=== PATIENT | female | born 1955 | race Caucasian/White ===

== ENCOUNTER 2019-04-15 17:24 | Emergency (ER) | payer OTHER ==
--- NOTE | 2019-04-15 17:34 | PDOC ---
Rapid Medical Evaluation Chief Complaint: Blood Sugar Problem Time Seen by Provider: 04/15/19 17:31 Medical Evaluation: Allergies Allergy/AdvReac Type Severity Reaction Status Date / Time No Known Allergies Allergy Unverified 02/17/14 13:54 04/15/19 17:31 I have performed a brief in-person evaluation of this patient. The patient presents with a chief complaint of: sent from PMD from [facility] 526 today , + urine infection Pertinent physical exam findings: pale,, thirsty, feels tired I have ordered the following: labs/ UA The patient will proceed to the ED for further evaluation. 04/15/19 17:35 Discharge Disposition - Diagnosis Hyperglycemia - Referrals - Patient Instructions - Post Discharge Activity
[2019-04-15 17:35] VITALS: BP 99/58; PULSE 91; TEMP 97.7; BMI 31.5
--- NOTE | 2019-04-15 19:07 | PDOC ---
History of Present Illness - General Chief Complaint: Blood Sugar Problem Stated Complaint: BLOOD SUGAR PROBLEM/SENT BY PCP Time Seen by Provider: 04/15/19 17:31 History Source: Patient Exam Limitations: No Limitations - History of Present Illness Initial Comments: Pt is a 63 yo F, with PMH of NIDDM and HTN, who is presenting via EMS from her PCP for BGM of 526 in the office today. Pt had presented for concern of fatigue , polydipsia, dysuria, urgency, and burning sensation during urination x2 weeks. Pt states she is supposed to take an oral medication for DM, but does not know the dosage and has not been taking her BG measurement at home. Pt states her last A1C in the office 6 months ago was 9.7. Pt denies any fevers/ chills, headache, vision changes, syncope, chest pain, palpitations, SOB, nausea /vomiting, abdominal pain, diarrhea/constipation, or leg swelling. Allergies: NKDA PCP: Dr. Cao Social: Pt smokes 1/2 ppd. Pt denies any alcohol or drug use. Pt denies any recent travel or sick contacts. Pt travels to [place] every 6 months. Surgical: no relevant history. Family: CVA/DM in mother - age 60s. 04/15/19 21:01 Past History - Travel Traveled outside of the country in the last 30 days: No Close contact w/someone who was outside of country & ill: No - Past Medical History Allergies/Adverse Reactions: Allergies Allergy/AdvReac Type Severity Reaction Status Date / Time No Known Allergies Allergy Verified 04/15/19 17:35 Home Medications: Ambulatory Orders Lisinopril 10 mg PO DAILY #30 tablet 02/17/14 Mometasone Furoate [Nasonex] 2 spray NS DAILY #1 02/17/14 Cephalexin Monohydrate [Keflex -] 500 mg PO BID #14 capsule 04/15/19 Sitagliptin Phos/Metformin HCl [Janumet 50-1,000 mg Tablet] 1 each PO BID #30 tablet 04/15/19 COPD: No Diabetes: Yes HTN: Yes Hypercholesterolemia: Yes - Surgical History Abdominal Surgery: (FIBROIDS REMOVED, HEMMORRHOIDS) - Suicide/Smoking/Psychosocial Hx Smoking History: Current every day smoker Number of Cigarettes Smoked Daily: 10 Information on smoking cessation initiated: No Hx Alcohol Use: No Drug/Substance Use Hx: No Review of Systems - Review of Systems Able to Perform ROS?: Yes Is the patient limited Nepali proficient: No Constitutional: Yes: Malaise, Weight Stable. No: Chills, Diaphoresis, Fever, Loss of Appetite, Weakness HEENTM: No: Blurred Vision, Double Vision, Throat Pain, Throat Swelling, Difficulty Swallowing Respiratory: No: Cough, Orthopnea, Shortness of Breath Cardiac (ROS): No: Chest Pain, Edema, Irregular Heart Rate, Lightheadedness, Palpitations, Syncope, Chest Tightness ABD/GI: No: Constipated, Diarrhea, Nausea, Poor Appetite, Poor Fluid Intake, Vomiting, Abdominal cramping : Yes: Dysuria, Frequency, Pain, Urgency. No: Discharge, Flank Pain, Hematuria, Incontinence Musculoskeletal: No: Back Pain, Joint Pain Integumentary: No: Dryness, Erythema, Rash Neurological: No: Headache, Numbness, Tingling, Tremors, Weakness, Unsteady Gait , Ataxia, Dizziness Psychiatric: No: Sleep Pattern Change, Change in Appetite Endocrine: No: Change in Weight Hematologic/Lymphatic: No: Anemia, Blood Clots, Easy Bleeding, Easy Bruising All Other Systems: Reviewed and Negative *Physical Exam - Vital Signs Last Vital Signs Temp Pulse Resp BP Pulse Ox 97.7 F 91 H 16 99/58 L 96 04/15/19 17:32 04/15/19 17:32 04/15/19 17:32 04/15/19 17:32 04/15/19 17:32 - Physical Exam Comments: BP 99/58, HR 91, pt afebrile. Pt in NAD, ambulatory in ED, with obese body habitus. Pt alert and oriented x3. 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 No midline spinal tenderness, step-offs, or crepitus. Head normocephalic, atraumatic. Eyes PERRLA, EOMI. Oropharynx without erythema or exudates, no LAD b/l. No nasal congestion, hearing intact. Clear heart sounds, S1/S2, no JVD, b/l pedal edema, or heart murmur. Clear lung sounds, no respiratory distress, wheezes, crackles, or accessory muscle use. No abdominal or CVA tenderness to palpation, no rebound, no guarding. Abdomen soft, non-distended, and with normoactive bowel sounds. Skin without jaundice or rash. 04/15/19 20:44 ED Treatment Course - LABORATORY CBC & Chemistry Diagram: 04/15/19 19:40 04/15/19 19:40 Medical Decision Making - Medical Decision Making Pt was seen at bedside, also will be seen by attending Dr. Queen. Pt presenting via EMS from her PCP for BGM of 526 in the office today. Pt had presented for concern of fatigue, polydipsia, dysuria, urgency, and burning sensation during urination x2 weeks. Pt states she is supposed to take an oral medication for DM, but does not know the dosage and has not been taking her BG measurement at home. Pt states her last A1C in the office 6 months ago was 9.7. Pt denies any fevers/chills, headache, vision changes, syncope, chest pain, palpitations, SOB, nausea/vomiting, abdominal pain, diarrhea/constipation, or leg swelling. Considering hyperglycemia vs DKA vs 2/2 infection (UTI) vs metabolic/ electrolyte abnormalities. Ordered work-up including CBC, CMP, acetone, EKG, UA, urine culture. Provided 2 L IV NS for improvement of dehydration, hyperglycemia. Will continue to reassess pt and monitor for symptomatic improvement. 04/15/19 20:58 ECG: NSR, intervals WNL (HR 68, CT 150, QRS 74, QTc 465). No TWIs or significant ST segment changes. No significant changes from prior ECG. Repeat BGM after 2 L IV NS: 363 BP improved, pt no longer tachycardic after IVF. Acetone negative, no AG -- not DKA Treating UTI with Keflex Sent Janumet (home dose) and Keflex to pt pharmacy. Cr slightly elevated at 1.6, provided pt 2L IV NS, likely 2/2 to dehydration and long-standing DM. No prior for comparison. Pt can be discharged to home with follow-up. Pt advised to follow-up with PCP in 1-2 days and has been referred to endocrine (Dr. Feng). Strict return precautions provided with pt understanding. 04/15/19 22:14 04/16/19 00:05 *DC/Admit/Observation/Transfer Diagnosis at time of Disposition: Hyperglycemia - Discharge Dispostion Disposition: HOME Condition at time of disposition: Improved Decision to Admit order: No - Prescriptions Prescriptions: Cephalexin Monohydrate [Keflex -] 500 mg PO BID #14 capsule Sitagliptin Phos/Metformin HCl [Janumet 50-1,000 mg Tablet] 1 each PO BID #30 tablet - Referrals Referrals: Phillip Cao MD [Primary Care Provider] - Giacomo Feng MD [Staff Physician] - - Patient Instructions Additional Instructions: You were seen in the ER today for high blood sugar. The results of your labs and imaging today showed high blood sugar and a urinary tract infection. Please follow-up with your primary care doctor and Dr. Feng within 1-2 days to discuss your visit and make sure your symptoms have improved. Please return to the ER if you have any worsening pain, confusion, development of fevers or chills, loss of consciousness, inability to tolerate food or fluids, or any other concerns. We have sent antibiotics and your blood sugar medication to your pharmacy. Please take this as prescribed. - Post Discharge Activity
[2019-04-15] MEDS ORDERED: SODIUM CHLORIDE 1,000 ML IV STA ×2 (19:10→20:39)
[2019-04-15 20:32] LABS: BASO % 0.6 % (0-2.0); EOS % 0.4 % (0-4.5); HEMATOCRIT 42.1 % (32.4-45.2); HEMOGLOBIN 14.2 GM/dL (10.7-15.3); LYMPH % 23.7 % (8-40); MCH 31.4 pg (25.7-33.7); MCHC 33.8 g/dl (32.0-36.0); MEAN CELL VOLUME 93.1 fl (80-96); MEAN PLT VOLUME 9.8 fl (7.5-11.1); MONO % 8.9 % (3.8-10.2); NEUT % 66.4 % (42.8-82.8); PLATELET COUNT 337 K/MM3 (134-434); RBC 4.53 M/mm3 (3.60-5.2); RDW 13.9 % (11.6-15.6); WHITE BLOOD COUNT 16.1 K/mm3 (4.0-10.0)
[2019-04-15 21:00] LABS: ALBUMIN 3.3 g/dl (3.4-5.0); BILIRUBIN,TOTAL 0.2 mg/dL (0.2-1); BLOOD UREA NITROGEN 27.1 mg/dL (7-18); CALCIUM 9.3 mg/dL (8.5-10.1); CREATININE 1.6 mg/dL (0.55-1.3); POTASSIUM 4.2 mmol/L (3.5-5.1); TOT PROT 7.2 g/dl (6.4-8.2)
[2019-04-15 21:17] LABS: INR 0.96 (0.83-1.09); PROTHROMBIN TIME (PATIENT) 11.3 SEC (9.7-13.0)
[2019-04-15 21:36] LABS: EPI CELLS 5.6 /HPF (0-5/HPF); HYALINE CASTS 11 /lpf (0-8); URINE APPEARANCE TURBID; URINE BACTERIA 46.9 /hpf (NEGATIVE); URINE BILIRUBIN NEGATIVE (NEGATIVE); URINE COLOR DK YELLOW; URINE GLUCOSE (UA) 3+ (NEGATIVE); URINE KETONE 1+ (NEGATIVE); URINE LEUK ESTERASE 2+ (NEGATIVE); URINE NITRITE NEGATIVE (NEGATIVE); URINE PROTEIN 4+ (NEGATIVE); URINE RBC 22 /hpf (0-4); URINE WBC 391 /hpf (0-5)
--- NOTE | 2019-04-15 21:57 | PDOC ---
Documentation entered by Wili Felton SCRIBE, acting as scribe for Irma Queen MD. Irma Queen MD: This documentation has been prepared by the Jose Francisco gibbs Daniel, SCRIBE, under my direction and personally reviewed by me in its entirety. I confirm that the documentation accurately reflects all work, treatment, procedures, and medical decision making performed by me. Attending Attestation - Resident Resident Name: Mamta Fragoso - ED Attending Attestation I have performed the following: I have examined & evaluated the patient, The case was reviewed & discussed with the resident, I agree w/resident's findings & plan, Exceptions are as noted - HPI HPI: 04/15/19 20:40 The patient is a 63 year old female with a past medical history of diabetes ( states she is compliant with her meds) and HTN here today for evaluation of elevated blood sugar. The patient reports that she saw her PCP today and had a finger stick which showed her sugar in the 500s. She also notes polyuria, increased fluid intake, and states that she has a UTI. Patient denies headache, lightheadedness. Denies fever, chills. Denies chest pain, shortness of breath. Denies nausea, vomiting, diarrhea, abdominal pain. Allergies: NKA Social history: Patient confirms tobacco use (half a pack a day since 13). Patient is retired and live in [place] but comes up to [place] 3-4 times a year. PCP: Phillip Cao - Physicial Exam PE: 04/15/19 20:40 GENERAL: Well-appearing, well-nourished. No apparent distress. HEENT: Normocephalic, atraumatic. PERRL, EOM intact. CARDIOVASCULAR: Normal S1, S2. Regular rate and rhythm. PULMONARY: Clear to auscultation bilaterally. ABDOMEN: Soft, protuberant, non-tender. EXTREMITIES: Normal ROM in all four extremities. No gross deformities. SKIN: Warm, dry. No rash NEUROLOGICAL: No focal neurological deficits. - Medical Decision Making 04/15/19 21:55 patient had complaint of dysuria and was found to have urinary tract infection. She has no fever, she is not in DKA as her acetone is negative. She is not acidotic. patient states she does take JANUMET 50 milligrams/thousand milligrams twice a day impression poorly controlled type 2 diabetes, urinary tract infection. Plan patient will be started on antibiotics and is encouraged to take her Janumet twice daily 04/15/19 21:57
[2019-04-15] MEDS ORDERED: CEPHALEXIN MONOHYDRATE 500 MG CAPSULE (UD) PO ONE (22:03)
[2019-04-15] MEDS ORDERED: CEPHALEXIN MONOHYDRATE 500 MG CAPSULE (UD) ONE (22:24)
--- NOTE | 2019-04-16 14:45 | EKG ---
Test Reason : Blood Pressure : / mmHG Vent. Rate : 068 BPM Atrial Rate : 068 BPM P-R Int : 150 ms QRS Dur : 074 ms QT Int : 438 ms P-R-T Axes : 055 018 043 degrees QTc Int : 465 ms NORMAL SINUS RHYTHM NORMAL ECG NO PREVIOUS ECGS AVAILABLE Confirmed by MD GABY, SERGEY ([id number]) on 04/16/2019 2:44:45 PM Referred By: Confirmed By:SERGEY GRIFFIN MD
== END 2019-04-15 22:40 | disposition home or self-care (01) ==
LOC: JER 17:24
PROC: 3E0337Z Introduction of Electrolytic and Water Balance Substance into Peripheral Vein, Percutaneous Approach (ICD-10-PCS; principal; 2019-04-15)
DX: E11.65 Type 2 diabetes mellitus with hyperglycemia (principal); Z79.84 Long term (current) use of oral hypoglycemic drugs; I10 Essential (primary) hypertension; E78.00 Pure hypercholesterolemia, unspecified; N39.0 Urinary tract infection, site not specified; R30.0 Dysuria
CPT/HCPCS: 36415; 71046-TC-FY; 80053; 81003; 82009; 82962; 85025; 85610; 87086; 93005; 93010; 96360; 96361; 99282-25; J7030

== ENCOUNTER 2021-05-16 12:45 | Inpatient (IN) | payer OTHER ==
[2021-05-16 13:58] LABS: BASO % 1.3 % (0-2.0); EOS % 0.2 % (0-4.5); HEMOGLOBIN 9.3 GM/dL (10.7-15.3); LYMPH % 17.8 % (8-40); MCH 32.8 pg (25.7-33.7); MCHC 34.6 g/dl (32.0-36.0); MEAN CELL VOLUME 94.9 fl (80-96); MEAN PLT VOLUME 8.6 fl (7.5-11.1); MONO % 17.1 % (3.8-10.2); NEUT % 63.6 % (42.8-82.8); PLATELET COUNT 271 10^3/uL (134-434); RBC 2.84 M/mm3 (3.60-5.2); RDW 17.4 % (11.6-15.6); WHITE BLOOD COUNT 9.4 K/mm3 (4.0-10.0)
[2021-05-16 14:05] LABS: INR 1.01 (0.83-1.09); PROTHROMBIN TIME (PATIENT) 12.4 SEC (9.7-13.0)
[2021-05-16 14:07] LABS: ACTIVATED PTT 24.7 SECONDS (25.2-36.5); CHLORIDE 111 mmol/L (98-107); SODIUM 143 mmol/L (136-145)
[2021-05-16 14:09] LABS: CALCIUM 8.4 mg/dL (8.5-10.1)
[2021-05-16 14:10] LABS: ALBUMIN 2.7 g/dl (3.4-5.0); ANION GAP 6 MMOL/L (8-16); CO2 25 mmol/L (21-32); GLUCOSE,RANDOM 222 mg/dL (74-106); MAGNESIUM 1.8 mg/dL (1.8-2.4)
[2021-05-16 14:13] LABS: CREATININE 0.7 mg/dL (0.55-1.3); SGOT/AST 13 U/L (15-37); SGPT/ALT 14 U/L (13-61)
[2021-05-16 14:14] LABS: BILIRUBIN,TOTAL 0.2 mg/dL (0.2-1)
[2021-05-16 14:15] LABS: TOT PROT 6.1 g/dl (6.4-8.2)
[2021-05-16 14:16] LABS: ALK PHOS 160 U/L (45-117)
[2021-05-16] MEDS ORDERED: ASPIRIN 81 MG CHEWABLE TABLETS PO ONE (14:34)
[2021-05-16] MEDS ORDERED: ASPIRIN 81 MG CHEWABLE TABLETS ONE ×2 (14:35→14:38)
[2021-05-16 14:40] LABS: ANISOCYTOSIS 1+; MACROCYTOSIS 0; PLATELET ESTIMATE NORMAL
[2021-05-16 14:50] LABS: N-TERMINAL BNP 10274.6 pg/ml (5-125)
[2021-05-16] MEDS ORDERED: HEPARIN NA (PORCINE) 5,000 UNITS/ML 1ML VIAL IVPUSH PRN ×3 (16:04→19:42)
[2021-05-16] MEDS ORDERED: HEPARIN NA (PORCINE) 5,000 UNITS/ML 1ML VIAL IVPUSH ONE (16:04)
[2021-05-16] MEDS ORDERED: CLOPIDOGREL BISULFATE 300 MG TABLET PO ONE (16:07)
[2021-05-16] MEDS ORDERED: metoPROLOL SUCCINATE 25 MG TAB.SR.24H (FP) PO ONE (16:08)
[2021-05-16] MEDS ORDERED: HEPARIN NA (PORCINE) 5,000 UNITS/ML 1ML VIAL ONE (16:15)
[2021-05-16] MEDS ORDERED: HEPARIN INFUSION - 25,000 UNITS/500 ML INFUS.BAG IVPB ONE (16:16)
[2021-05-16] MEDS ORDERED: CLOPIDOGREL BISULFATE 300 MG TABLET ONE (16:28)
[2021-05-16] MEDS ORDERED: metoPROLOL SUCCINATE 25 MG TAB.SR.24H (FP) ONE (16:28)
[2021-05-16] MEDS: HEPARIN - 25,000 UNIT in SODIUM CHLORIDE 495 ML IV SCH (17:21)
[2021-05-16 23:03] LABS: ARTERIAL BLD GAS O2 SATURATION 99.5 % (95-98); ARTERIAL BLOOD GAS BASE EXCESS -2.2 mmol/L (-2-2); ARTERIAL BLOOD GAS PO2 215.2 mmHg (80-100); ARTERIAL BLOOD GAS pH 7.417 (7.350-7.450)
[2021-05-16 23:05] LABS: ALLENS TEST POSITIVE
[2021-05-16 23:16] VITALS: BMI 28.0
[2021-05-16] MEDS: ATORVASTATIN CA 80 MG TABLET (FP) PO SCH (23:40)
[2021-05-16] MEDS: ZOLPIDEM TARTRATE 5 MG TABLET PO PRN (23:40)
[2021-05-17 00:19] LABS: INR 1.04 (0.83-1.09); PROTHROMBIN TIME (PATIENT) 12.8 SEC (9.7-13.0)
[2021-05-17 00:21] LABS: ACTIVATED PTT 26.9 SECONDS (25.2-36.5)
[2021-05-17] MEDS: HEPARIN NA (PORCINE) 5,000 UNITS/ML 1ML VIAL IVPUSH PRN ×2 (01:04→17:25)
[2021-05-17 04:51] LABS: BASO % 0.7 % (0-2.0); HEMATOCRIT 27.7 % (32.4-45.2); HEMOGLOBIN 9.3 GM/dL (10.7-15.3); LYMPH % 8.8 % (8-40); MCHC 33.6 g/dl (32.0-36.0); MEAN CELL VOLUME 95.2 fl (80-96); NEUT % 75.5 % (42.8-82.8); PLATELET COUNT 253 10^3/uL (134-434); RBC 2.91 M/mm3 (3.60-5.2); RDW 17.2 % (11.6-15.6); WHITE BLOOD COUNT 13.5 K/mm3 (4.0-10.0)
[2021-05-17 06:21] LABS: ALBUMIN 2.6 g/dl (3.4-5.0); ALK PHOS 176 U/L (45-117); ANION GAP 9 MMOL/L (8-16); BILIRUBIN,TOTAL 0.2 mg/dL (0.2-1); BLOOD UREA NITROGEN 19.3 mg/dL (7-18); CHLORIDE 111 mmol/L (98-107); CHOLESTEROL 238 mg/dL (50-200); CO2 22 mmol/L (21-32); GLUCOSE,RANDOM 396 mg/dL (74-106); HDL CHOLESTEROL 43 mg/dL (40-60); LDL CHOLESTEROL (ONLY SJRH) 156 mg/dL (5-100); SGOT/AST 12 U/L (15-37); SGPT/ALT 16 U/L (13-61); SODIUM 142 mmol/L (136-145); TRIGLYCERIDES 191 mg/dL (0-150)
[2021-05-17] MEDS: INSULIN SLIDING SCALE (NOVOLOG) 1 VIAL SQ SCH ×3 (07:50→17:31)
[2021-05-17] MEDS: LISINOPRIL 20 MG TABLET PO SCH (09:48)
[2021-05-17] MEDS: ASPIRIN COATED 81 MG TABLET.EC PO SCH (09:48)
[2021-05-17] MEDS: metoPROLOL SUCCINATE 25 MG TAB.SR.24H (FP) PO SCH (09:49)
[2021-05-17 10:07] LABS: ANISOCYTOSIS 1+; MACROCYTOSIS 0; PLATELET ESTIMATE NORMAL
[2021-05-17] MEDS: HEPARIN - 25,000 UNIT in SODIUM CHLORIDE 495 ML IV SCH (15:15)
[2021-05-17] MEDS: FUROSEMIDE 40 MG/4 ML INJECTABLE VIAL IVPUSH SCH (15:20)
[2021-05-17] MEDS: ATORVASTATIN CA 80 MG TABLET (FP) PO SCH (21:33)
[2021-05-17] MEDS: ZOLPIDEM TARTRATE 5 MG TABLET PO PRN (21:51)
[2021-05-17] MEDS ORDERED: INSULIN (LEVEMIR) 100 UNITS/ML UNITS SQ SCH (22:00)
[2021-05-18] MEDS: HEPARIN NA (PORCINE) 5,000 UNITS/ML 1ML VIAL IVPUSH PRN (00:35)
[2021-05-18] MEDS: FUROSEMIDE 40 MG/4 ML INJECTABLE VIAL IVPUSH SCH ×2 (06:39→14:40)
[2021-05-18] MEDS: INSULIN SLIDING SCALE (NOVOLOG) 1 VIAL SQ SCH ×3 (06:40→17:15)
[2021-05-18 07:12] LABS: BASO % 0.9 % (0-2.0); EOS % 0.1 % (0-4.5); HEMATOCRIT 25.2 % (32.4-45.2); HEMOGLOBIN 8.7 GM/dL (10.7-15.3); LYMPH % 20.4 % (8-40); MCH 32.9 pg (25.7-33.7); MCHC 34.4 g/dl (32.0-36.0); MEAN CELL VOLUME 95.5 fl (80-96); MEAN PLT VOLUME 9.3 fl (7.5-11.1); MONO % 13.2 % (3.8-10.2); NEUT % 65.4 % (42.8-82.8); PLATELET COUNT 221 10^3/uL (134-434); RBC 2.64 M/mm3 (3.60-5.2); RDW 18.5 % (11.6-15.6); WHITE BLOOD COUNT 11.9 K/mm3 (4.0-10.0)
[2021-05-18 09:43] LABS: ANISOCYTOSIS 1+; MACROCYTOSIS 0; PLATELET ESTIMATE NORMAL
[2021-05-18] MEDS: metoPROLOL SUCCINATE 25 MG TAB.SR.24H (FP) PO SCH (09:51)
[2021-05-18] MEDS: ASPIRIN COATED 81 MG TABLET.EC PO SCH (09:51)
[2021-05-18] MEDS: LISINOPRIL 20 MG TABLET PO SCH (09:51)
[2021-05-18] MEDS ORDERED: INSULIN (LEVEMIR) 100 UNITS/ML UNITS SQ SCH (10:15)
[2021-05-18] MEDS ORDERED: PT OWN MED DRAWER 7, Y5N ONE (11:12)
[2021-05-18 12:26] LABS: CALCIUM 7.8 mg/dL (8.5-10.1)
[2021-05-18 12:33] LABS: ALBUMIN 2.3 g/dl (3.4-5.0); BILIRUBIN,TOTAL 0.3 mg/dL (0.2-1); BLOOD UREA NITROGEN 19.4 mg/dL (7-18); CREATININE 0.8 mg/dL (0.55-1.3); TOT PROT 5.3 g/dl (6.4-8.2)
[2021-05-18] MEDS: HEPARIN - 25,000 UNIT in SODIUM CHLORIDE 495 ML IV SCH (16:38)
[2021-05-18] MEDS: ATORVASTATIN CA 80 MG TABLET (FP) PO SCH (22:00)
[2021-05-18] MEDS ORDERED: ZOLPIDEM TARTRATE 5 MG TABLET PO ONE ×2 (22:31→23:00)
[2021-05-19] MEDS: FUROSEMIDE 40 MG/4 ML INJECTABLE VIAL IVPUSH SCH ×2 (05:25→13:32)
[2021-05-19] MEDS: INSULIN SLIDING SCALE (NOVOLOG) 1 VIAL SQ SCH ×3 (07:06→17:15)
[2021-05-19 07:28] LABS: HEMATOCRIT 23.3 % (32.4-45.2); HEMOGLOBIN 7.9 GM/dL (10.7-15.3); MCH 32.1 pg (25.7-33.7); MCHC 33.8 g/dl (32.0-36.0); MEAN CELL VOLUME 94.8 fl (80-96); PLATELET COUNT 226 10^3/uL (134-434); RBC 2.46 M/mm3 (3.60-5.2); RDW 18.8 % (11.6-15.6)
[2021-05-19 07:54] LABS: ALBUMIN 2.4 g/dl (3.4-5.0)
[2021-05-19 07:57] LABS: CREATININE 0.8 mg/dL (0.55-1.3)
[2021-05-19 07:58] LABS: BILIRUBIN,TOTAL 0.3 mg/dL (0.2-1)
[2021-05-19 07:59] LABS: TOT PROT 5.3 g/dl (6.4-8.2)
[2021-05-19] MEDS: ASPIRIN COATED 81 MG TABLET.EC PO SCH (09:06)
[2021-05-19] MEDS: metoPROLOL SUCCINATE 25 MG TAB.SR.24H (FP) PO SCH (09:07)
[2021-05-19] MEDS: LISINOPRIL 20 MG TABLET PO SCH (09:07)
[2021-05-19] MEDS ORDERED: ZOLPIDEM TARTRATE 5 MG TABLET PO PRN (10:01)
[2021-05-19] MEDS: POTASSIUM CHLORIDE TABS 20 MEQ TABLET.ER (FP) PO SCH (13:32)
[2021-05-19] MEDS: ZOLPIDEM TARTRATE 5 MG TABLET PO PRN ×2 (21:32→23:13)
[2021-05-19] MEDS: guaiFENesin 600 MG TABLET.ER (FP) PO SCH (21:32)
[2021-05-19] MEDS: ATORVASTATIN CA 80 MG TABLET (FP) PO SCH (21:32)
[2021-05-19] MEDS ORDERED: INSULIN (LEVEMIR) 100 UNITS/ML UNITS SQ SCH (22:00)
[2021-05-19] MEDS ORDERED: LOPERAMIDE HCL 2 MG CAPSULE PO ONE (22:31)
[2021-05-19] MEDS ORDERED: MELATONIN 5 MG TABLETS PO ONE (22:54)
[2021-05-20] MEDS ORDERED: FUROSEMIDE 40 MG/4 ML INJECTABLE VIAL IVPUSH SCH (06:00)
[2021-05-20] MEDS: INSULIN SLIDING SCALE (NOVOLOG) 1 VIAL SQ SCH ×3 (06:52→16:32)
[2021-05-20] MEDS ORDERED: INSULIN (NOVOLOG) ASPART 100 UNITS/ML 10ML VIAL ONE ×3 (06:56→16:27)
[2021-05-20] MEDS: POTASSIUM CHLORIDE TABS 20 MEQ TABLET.ER (FP) PO SCH (09:16)
[2021-05-20] MEDS: ASPIRIN COATED 81 MG TABLET.EC PO SCH (09:16)
[2021-05-20] MEDS: guaiFENesin 600 MG TABLET.ER (FP) PO SCH ×2 (09:16→21:23)
[2021-05-20] MEDS: LISINOPRIL 20 MG TABLET PO SCH (09:17)
[2021-05-20] MEDS: metoPROLOL SUCCINATE 25 MG TAB.SR.24H (FP) PO SCH (09:17)
[2021-05-20] MEDS ORDERED: PIPERACILLIN/TAZOBACTAM 4.5 GM VIAL IVPB ONE ×2 (10:06→17:37)
[2021-05-20] MEDS ORDERED: DEXTROSE 5%-WATER 100 ML IVPB ONE (10:06)
[2021-05-20] MEDS: PIPERACILLIN/TAZOB 4.5 GM 4.5 GM in DEXTROSE 5%-WATER 100 ML IVPB SCH ×3 (10:14→19:05)
[2021-05-20] MEDS: FUROSEMIDE 40 MG TABLET (FP) PO SCH (13:47)
[2021-05-20] MEDS ORDERED: PIPERACILLIN/TAZOBACTAM 3.375 GM VIAL IVPB ONE (18:18)
[2021-05-20] MEDS: PIPERACILLIN/TAZOB 3.375 GM 3.375 GM in DEXTROSE 5%-WATER - 50 ML IVPB SCH (18:19)
[2021-05-20] MEDS: ATORVASTATIN CA 80 MG TABLET (FP) PO SCH (21:24)
[2021-05-20] MEDS: INSULIN (LEVEMIR) 100 UNITS/ML UNITS SQ SCH (21:24)
[2021-05-20] MEDS: ZOLPIDEM TARTRATE 5 MG TABLET PO PRN (21:24)
[2021-05-21] MEDS ORDERED: PIPERACILLIN/TAZOBACTAM 3.375 GM VIAL IVPB ONE ×3 (01:06→17:35)
[2021-05-21] MEDS ORDERED: DEXTROSE 5%-WATER - 50 ML IVPB ONE ×3 (01:06→17:35)
[2021-05-21] MEDS: PIPERACILLIN/TAZOB 3.375 GM 3.375 GM in DEXTROSE 5%-WATER - 50 ML IVPB SCH ×3 (01:38→17:47)
[2021-05-21] MEDS: FUROSEMIDE 40 MG TABLET (FP) PO SCH ×2 (06:19→13:55)
[2021-05-21] MEDS: INSULIN SLIDING SCALE (NOVOLOG) 1 VIAL SQ SCH ×3 (06:22→17:46)
[2021-05-21] MEDS ORDERED: REGADENOSON 0.4 MG/5 ML PRE-FILLED SYRINGE IVPUSH ONE ×2 (09:45→10:12)
[2021-05-21] MEDS: ASPIRIN COATED 81 MG TABLET.EC PO SCH (12:36)
[2021-05-21] MEDS: LISINOPRIL 20 MG TABLET PO SCH (12:36)
[2021-05-21] MEDS: metoPROLOL SUCCINATE 25 MG TAB.SR.24H (FP) PO SCH (12:36)
[2021-05-21] MEDS: guaiFENesin 600 MG TABLET.ER (FP) PO SCH ×2 (12:36→21:28)
[2021-05-21] MEDS: POTASSIUM CHLORIDE TABS 20 MEQ TABLET.ER (FP) PO SCH (12:36)
[2021-05-21] MEDS: INSULIN (LEVEMIR) 100 UNITS/ML UNITS SQ SCH (21:28)
[2021-05-21] MEDS: ATORVASTATIN CA 80 MG TABLET (FP) PO SCH (21:28)
[2021-05-21] MEDS: ZOLPIDEM TARTRATE 5 MG TABLET PO PRN (22:30)
[2021-05-22] MEDS ORDERED: DEXTROSE 5%-WATER - 50 ML IVPB ONE ×3 (01:08→17:52)
[2021-05-22] MEDS ORDERED: PIPERACILLIN/TAZOBACTAM 3.375 GM VIAL IVPB ONE ×3 (01:08→17:51)
[2021-05-22] MEDS: PIPERACILLIN/TAZOB 3.375 GM 3.375 GM in DEXTROSE 5%-WATER - 50 ML IVPB SCH ×3 (01:17→18:26)
[2021-05-22] MEDS: FUROSEMIDE 40 MG TABLET (FP) PO SCH ×2 (06:05→13:18)
[2021-05-22] MEDS: INSULIN SLIDING SCALE (NOVOLOG) 1 VIAL SQ SCH ×3 (06:05→17:14)
[2021-05-22] MEDS: ASPIRIN COATED 81 MG TABLET.EC PO SCH (09:27)
[2021-05-22] MEDS: LISINOPRIL 20 MG TABLET PO SCH (09:27)
[2021-05-22] MEDS: guaiFENesin 600 MG TABLET.ER (FP) PO SCH ×2 (09:27→21:19)
[2021-05-22] MEDS: POTASSIUM CHLORIDE TABS 20 MEQ TABLET.ER (FP) PO SCH (09:28)
[2021-05-22] MEDS: metoPROLOL SUCCINATE 25 MG TAB.SR.24H (FP) PO SCH (09:28)
[2021-05-22 09:40] LABS: BASO % 0.6 % (0-2.0); EOS % 0.2 % (0-4.5); HEMOGLOBIN 8.6 GM/dL (10.7-15.3); LYMPH % 11.4 % (8-40); MCHC 34.4 g/dl (32.0-36.0); MEAN PLT VOLUME 9.2 fl (7.5-11.1); MONO % 10.9 % (3.8-10.2); NEUT % 76.9 % (42.8-82.8); PLATELET COUNT 310 10^3/uL (134-434); RDW 19.7 % (11.6-15.6); WHITE BLOOD COUNT 17.6 K/mm3 (4.0-10.0)
[2021-05-22 09:59] LABS: CALCIUM 7.9 mg/dL (8.5-10.1)
[2021-05-22 10:06] LABS: CREATININE 0.9 mg/dL (0.55-1.3)
[2021-05-22 10:07] LABS: ALBUMIN 2.4 g/dl (3.4-5.0); TOT PROT 5.5 g/dl (6.4-8.2)
[2021-05-22 10:22] LABS: BILIRUBIN,TOTAL 0.2 mg/dL (0.2-1)
[2021-05-22] MEDS ORDERED: INSULIN (NOVOLOG) ASPART 100 UNITS/ML 10ML VIAL ONE ×2 (11:22→21:47)
[2021-05-22] MEDS ORDERED: INSULIN (LEVEMIR) 100 UNITS/ML UNITS SQ SCH (14:53)
[2021-05-22] MEDS: ATORVASTATIN CA 80 MG TABLET (FP) PO SCH (21:19)
[2021-05-22 22:17] VITALS: BP 129/59; PULSE 84; TEMP 99.4
== END 2021-05-23 01:45 | disposition short-term general hospital (02) | DRG 280 ==
LOC: JER 12:45 → JERBED 15:28 → J2W 22:32 → JICU 05-17 05:10 → J2W 05-17 05:27 → J8W 05-19 17:34
PROVIDERS: ADMIT Internal Medicine; ATTEND Internal Medicine
DX: I21.4 Non-ST elevation (NSTEMI) myocardial infarction (principal); I50.23 Acute on chronic systolic (congestive) heart failure; E87.2 Acidosis; E87.3 Alkalosis; I11.0 Hypertensive heart disease with heart failure; C50.919 Malignant neoplasm of unspecified site of unspecified female breast; E11.65 Type 2 diabetes mellitus with hyperglycemia; D72.829 Elevated white blood cell count, unspecified; F17.210 Nicotine dependence, cigarettes, uncomplicated
CPT/HCPCS: 36415; 36600; 71045-TC-FY; 71275-TC; 78452-TC; 80053; 80061; 82550; 82803; 82962; 83036; 83721; 83735; 83880; 84443; 84484; 85025; 85027; 85610; 85730; 87070; 87205; 93005; 93010; 93017; 93306-TC; 99285-25; A9502; C9803; J1644; J2785; U0003; U0005

== ENCOUNTER 2023-12-06 12:25 | Inpatient (IN) | payer OTHER ==
[2023-12-06] MEDS ORDERED: ALBUTEROL SO4 2.5/IPRATROPIUM 0.5 INH SOL 3 ML VIAL.NEB. NEB ONE (14:10)
[2023-12-06 14:15] LABS: BASO % 0.8 % (0-2.0); EOS % 0.3 % (0-4.5); HEMATOCRIT 30.1 % (32.4-45.2); HEMOGLOBIN 9.5 GM/dL (10.7-15.3); LYMPH % 19.3 % (8-40); MCHC 31.7 g/dl (32.0-36.0); MEAN CELL VOLUME 88.4 fl (80-96); MEAN PLT VOLUME 9.5 fl (7.5-11.1); MONO % 16.8 % (3.8-10.2); NEUT % 62.8 % (42.8-82.8); PLATELET COUNT 223 10^3/uL (134-434); RDW 18.1 % (11.6-15.6); WHITE BLOOD COUNT 5.2 K/mm3 (4.0-10.0)
[2023-12-06 14:16] LABS: VENOUS BASE EXCESS -2.4 mmol/L (-2-2); VENOUS O2 SATURATION 26.8 % (70-80); VENOUS PCO2 44.7 mmHg (38-52); VENOUS PH 7.337 (7.310-7.410)
[2023-12-06] MEDS: ALBUTEROL SO4 2.5/IPRATROPIUM 0.5 INH SOL 3 ML VIAL.NEB. NEB ONE (14:23)
[2023-12-06 14:28] LABS: INR 1.55 (0.83-1.09); PROTHROMBIN TIME (PATIENT) 17.9 SEC (9.7-13.0)
[2023-12-06 14:29] LABS: ACTIVATED PTT 27.6 SECONDS (25.2-36.5)
[2023-12-06 14:35] LABS: POTASSIUM 3.8 mmol/L (3.5-5.1)
[2023-12-06 14:37] LABS: CALCIUM 8.8 mg/dL (8.5-10.1)
[2023-12-06 14:38] LABS: BLOOD UREA NITROGEN 37.3 mg/dL (7-18)
[2023-12-06 14:39] LABS: BILIRUBIN,DIRECT 0.2 mg/dL (0.0-0.2)
[2023-12-06 14:41] LABS: CREATININE 1.4 mg/dL (0.55-1.3)
[2023-12-06 14:42] LABS: BILIRUBIN,TOTAL 0.5 mg/dL (0.2-1); TOT PROT 6.9 g/dl (6.4-8.2)
[2023-12-06] MEDS ORDERED: FUROSEMIDE 40 MG/4 ML INJECTABLE VIAL IVPUSH ONE (15:00)
[2023-12-06] MEDS ORDERED: FUROSEMIDE 40 MG/4 ML INJECTABLE VIAL ONE (15:11)
[2023-12-06] MEDS: FUROSEMIDE 40 MG/4 ML INJECTABLE VIAL IVPUSH ONE (15:18)
[2023-12-06] MEDS ORDERED: ALBUTEROL SO4 0.083% IH SOL 2.5 MG/3 ML VIAL.NEB. NEB PRN (16:29)
[2023-12-06 17:17] LABS: EPI CELLS >36 /uL (0-25.1); HYALINE CASTS 1 /uL (0-3.1); URINE APPEARANCE CLOUDY; URINE BACTERIA 1774 /uL (0-1359); URINE BILIRUBIN NEGATIVE (NEGATIVE); URINE COLOR YELLOW; URINE GLUCOSE (UA) 3+ (NEGATIVE); URINE KETONE NEGATIVE (NEGATIVE); URINE LEUK ESTERASE 1+ (NEGATIVE); URINE NITRITE NEGATIVE (NEGATIVE); URINE PROTEIN 3+ (NEGATIVE); URINE RBC 44 /uL (0-23.9); URINE UROBILINOGEN 0.2 mg/dL (0.2-1.0); URINE WBC 338 /uL (0-25.8)
[2023-12-06] MEDS: ALBUTEROL SO4 2.5/IPRATROPIUM 0.5 INH SOL 3 ML VIAL.NEB. NEB SCH (20:34)
[2023-12-06] MEDS: ATORVASTATIN CA 80 MG TABLET (FP) PO SCH (22:09)
[2023-12-06] MEDS: SACUBITRIL/VALSARTAN 24 MG-26 MG TABLET PO SCH (22:09)
[2023-12-06] MEDS: APIXABAN 2.5 MG TABLET PO SCH (22:09)
[2023-12-06] MEDS: INSULIN (LEVEMIR) 100 UNITS/ML UNITS SQ SCH (22:09)
[2023-12-06] MEDS: CARVEDILOL 12.5 MG TABLET (FP) PO SCH (22:09)
[2023-12-06] MEDS: INSULIN ASPART SLIDING SCALE (NOVOLOG) 1 VIAL SQ SCH (22:10)
[2023-12-06 23:17] VITALS: RESP 18
[2023-12-06 23:36] VITALS: BMI 29.5
[2023-12-07] MEDS: methylPREDNISolone NA SUCC 40 MG/1 ML VIAL IVPUSH SCH (02:36)
[2023-12-07] MEDS: FUROSEMIDE 40 MG/4 ML INJECTABLE VIAL IVPUSH SCH (06:36)
[2023-12-07 08:21] LABS: HEMATOCRIT 29.5 % (32.4-45.2); HEMOGLOBIN 9.4 GM/dL (10.7-15.3); MCHC 31.9 g/dl (32.0-36.0); MEAN CELL VOLUME 87.7 fl (80-96); MEAN PLT VOLUME 9.6 fl (7.5-11.1); PLATELET COUNT 223 10^3/uL (134-434); RBC 3.36 M/mm3 (3.60-5.2); RDW 18.1 % (11.6-15.6); WHITE BLOOD COUNT 7.5 K/mm3 (4.0-10.0)
[2023-12-07 08:26] LABS: INR 1.48 (0.83-1.09); PROTHROMBIN TIME (PATIENT) 17.1 SEC (9.7-13.0)
[2023-12-07 08:37] LABS: POTASSIUM 3.8 mmol/L (3.5-5.1)
[2023-12-07 08:39] LABS: BLOOD UREA NITROGEN 41.5 mg/dL (7-18); CALCIUM 8.8 mg/dL (8.5-10.1); MAGNESIUM 2.2 mg/dL (1.8-2.4)
[2023-12-07 08:42] LABS: CREATININE 1.4 mg/dL (0.55-1.3); PHOSPHOROUS 2.7 mg/dL (2.5-4.9)
[2023-12-07 08:44] LABS: BILIRUBIN,TOTAL 0.5 mg/dL (0.2-1); TOT PROT 6.8 g/dl (6.4-8.2)
[2023-12-07] MEDS: NICOTINE 14 MG/24 HOURS TOPICAL PATCH TD SCH (14:27)
[2023-12-07] MEDS ORDERED: ACETAMINOPHEN 325 MG TABLET (FP) PO PRN (14:53)
[2023-12-08] MEDS: MELATONIN 5 MG TABLETS PO PRN (00:38)
[2023-12-08 10:02] LABS: BASO % 0.1 % (0-2.0); HEMOGLOBIN 9.8 GM/dL (10.7-15.3); LYMPH % 7.3 % (8-40); MCH 28.5 pg (25.7-33.7); MCHC 32.7 g/dl (32.0-36.0); MEAN CELL VOLUME 86.9 fl (80-96); MEAN PLT VOLUME 9.6 fl (7.5-11.1); MONO % 8.6 % (3.8-10.2); PLATELET COUNT 245 10^3/uL (134-434); RBC 3.45 M/mm3 (3.60-5.2); RDW 18.1 % (11.6-15.6); WHITE BLOOD COUNT 8.2 K/mm3 (4.0-10.0)
[2023-12-08 10:26] LABS: BLOOD UREA NITROGEN 55.7 mg/dL (7-18); CALCIUM 9.1 mg/dL (8.5-10.1); CREATININE 1.5 mg/dL (0.55-1.3)
[2023-12-08 10:29] LABS: BILIRUBIN,TOTAL 0.5 mg/dL (0.2-1)
[2023-12-08] MEDS: methylPREDNISolone NA SUCC 40 MG/1 ML VIAL IVPUSH SCH (21:38)
[2023-12-08] MEDS: ZOLPIDEM TARTRATE 5 MG TABLET PO PRN (21:48)
[2023-12-09 09:18] LABS: BASO % 0.2 % (0-2.0); HEMATOCRIT 32.1 % (32.4-45.2); HEMOGLOBIN 10.1 GM/dL (10.7-15.3); LYMPH % 7.4 % (8-40); MCH 27.6 pg (25.7-33.7); MCHC 31.5 g/dl (32.0-36.0); MEAN CELL VOLUME 87.8 fl (80-96); MEAN PLT VOLUME 9.7 fl (7.5-11.1); MONO % 8.4 % (3.8-10.2); PLATELET COUNT 278 10^3/uL (134-434); RBC 3.66 M/mm3 (3.60-5.2); RDW 17.9 % (11.6-15.6); WHITE BLOOD COUNT 10.4 K/mm3 (4.0-10.0)
[2023-12-09 09:21] LABS: POTASSIUM 4.1 mmol/L (3.5-5.1)
[2023-12-09 09:23] LABS: CALCIUM 9.5 mg/dL (8.5-10.1)
[2023-12-09 09:24] LABS: ALBUMIN 3.3 g/dl (3.4-5.0); BLOOD UREA NITROGEN 64.3 mg/dL (7-18)
[2023-12-09 09:27] LABS: CREATININE 1.5 mg/dL (0.55-1.3)
[2023-12-09 09:28] LABS: TOT PROT 7.4 g/dl (6.4-8.2)
[2023-12-09 09:30] LABS: BILIRUBIN,TOTAL 0.7 mg/dL (0.2-1)
[2023-12-09] MEDS ORDERED: INSULIN ASPART SLIDING SCALE (NOVOLOG) 1 VIAL SQ ONE (11:25)
[2023-12-09] MEDS: HYDROCORTISONE 2.5% TOPICAL CREAM 30 GM TUBE TP SCH (12:17)
[2023-12-09] MEDS: BANATROL PLUS POWDER PACKET PO SCH (13:28)
[2023-12-09] MEDS: FUROSEMIDE 40 MG/4 ML INJECTABLE VIAL IVPUSH ONE (13:28)
[2023-12-09 13:52] VITALS: BP 118/74; PULSE 86; TEMP 97.9
== END 2023-12-09 15:28 | disposition home or self-care (01) | DRG 291 ==
LOC: JER 12:25 → JERBED 13:38 → J5S 18:36
PROVIDERS: ADMIT Internal Medicine
DX: I11.0 Hypertensive heart disease with heart failure (principal); I50.23 Acute on chronic systolic (congestive) heart failure; J44.1 Chronic obstructive pulmonary disease with (acute) exacerbation; R17 Unspecified jaundice; J44.0 Chronic obstructive pulmonary disease with (acute) lower respiratory infection; I25.10 Atherosclerotic heart disease of native coronary artery without angina pectoris; I08.1 Rheumatic disorders of both mitral and tricuspid valves; E11.9 Type 2 diabetes mellitus without complications; I48.91 Unspecified atrial fibrillation; J20.9 Acute bronchitis, unspecified; Z95.5 Presence of coronary angioplasty implant and graft; Z85.3 Personal history of malignant neoplasm of breast
CPT/HCPCS: 0241U-QW; 36415; 71045-TC-FY; 80053; 81003; 82140; 82248; 82803; 82962; 83605; 83735; 83880; 84100; 84484; 85025; 85027; 85610; 85730; 87086; 87899; 93005; 93010; 93306-TC; 94640; 99285-25